=== PATIENT | male | born 1995 | race Caucasian/White ===

== ENCOUNTER 2017-05-02 11:26 | Emergency (ER) | payer OTHER ==
[~2017-05-02] VITALS: Ht 177.8 cm; Wt 68.5 kg
[2017-05-02] MEDS ORDERED: KETOROLAC 30 MG/ML VIAL (J1885) IV ONE (13:15)
[2017-05-02] MEDS ORDERED: ONDANSETRON 4MG/2ML VIAL (J2405) IV ONE (13:15)
[2017-05-02] MEDS ORDERED: GASTROGRAFIN SOLUTION 30ML (Q9963) PO ONE (13:30)
[2017-05-02 13:51] LABS: ALBUMIN 4.6 GM/DL (3.2-5.2); ALBUMIN/GLOBULIN RATIO 1.48 (1.00-1.93); ALKALINE PHOSPHATASE 64 U/L (45-117); ALT/SGPT 33 U/L (12-78); AMYLASE 45 U/L (25-115); ANION GAP 6 MEQ/L (8-16); AST/SGOT 26 U/L (15-37); BILIRUBIN,DIRECT 0.3 MG/DL (0.0-0.2); BILIRUBIN,TOTAL 1.3 MG/DL (0.2-1.0); BLOOD UREA NITROGEN 24 MG/DL (7-18); CALCIUM LEVEL 8.9 MG/DL (8.5-10.1); CARBON DIOXIDE LEVEL 29 MEQ/L (21-32); CHLORIDE LEVEL 105 MEQ/L (98-107); CREATININE FOR GFR 1.07 MG/DL (0.70-1.30); GLUCOSE, FASTING 95 MG/DL (70-105); POTASSIUM SERUM 3.9 MEQ/L (3.5-5.1); SODIUM LEVEL 140 MEQ/L (136-145); TOTAL PROTEIN 7.7 GM/DL (6.4-8.2)
[2017-05-02 13:58] LABS: BASO % 0.4 % (0.0-1.0); EOS % 0.5 % (0.0-3.0); LARGE UNSTAINED CELL # 0.1 K/mm3 (0.0-0.4); LARGE UNSTAINED CELL % 2.2 % (0.0-4.0); LYMPH # 1.8 K/mm3 (1.5-6.5); LYMPH % 26.2 % (24.0-44.0); MEAN CORPUSCULAR HEMOGLOBIN 29.9 pg (27.0-33.0); MEAN CORPUSCULAR HGB CONC 34.9 g/dl (32.0-36.5); MEAN CORPUSCULAR VOLUME 85.8 fl (80.0-96.0); MONO # 0.4 K/mm3 (0.0-0.8); MONO % 6.8 % (0.0-5.0); NEUTROPHILS % 63.8 % (36.0-66.0); PLATELET COUNT, AUTOMATED 229 k/mm3 (150-450); RED CELL DISTRIBUTION WIDTH 12.5 % (11.5-14.5); WHITE BLOOD COUNT 6.2 K/mm3 (4.0-10.0)
[2017-05-02] MEDS ORDERED: GASTROGRAFIN SOLUTION 30ML PO ONE (14:00)
[2017-05-02] MEDS ORDERED: ISOVUE-370 76% 100ML VIAL (Q9967) As Ordered ONE (14:44)
[2017-05-02 15:10] VITALS: BP 136/69
--- NOTE | 2017-05-02 15:11 | REP ---
CT abdomen pelvis with IV and oral contrast: There are no comparisons. The visualized lung miller are unremarkable. The hepatic parenchyma, gallbladder, pancreas and spleen are unremarkable. The adrenals, kidneys and abdominal aorta are unremarkable. There is no bowel distension or wall thickening. The mesentery is unremarkable. Pelvis: The appendix has a normal appearance. There is no ascites or adenopathy. The pelvic bowel loops are unremarkable. The bladder is unremarkable. Impression: Essentially negative CT of the abdomen and pelvis. Signed by Isaias Kimble MD 05/02/2017 03:03 P
[2017-05-02] MEDS ORDERED: ZOFR4TAB3 PO (15:14)
== END 2017-05-02 15:22 | disposition home or self-care (01) ==
LOC: M ED 11:55
DX: R10.84 Generalized abdominal pain (principal); R11.0 Nausea
CPT/HCPCS: 74177; 80048; 80076; 81001; 82150; 83690; 85025; 86140; 96374; 96375; 99283; J1885; J2405; Q9963; Q9967

== ENCOUNTER 2017-09-13 20:33 | Emergency (ER) | payer OTHER ==
[~2017-09-13] VITALS: Ht 177.8 cm; Wt 70.5 kg
[~2017-09-13 20:33] MED LIST: ZOFR4TAB3 PO
[2017-09-13] MEDS ORDERED: TRIA1CR TOP (23:12)
[2017-09-13] MEDS ORDERED: predniSONE 20 MG TAB PO ONE (23:15)
[2017-09-13] MEDS ORDERED: LORATADINE 10 MG TAB PO ONE (23:15)
[2017-09-13 23:17] VITALS: BP 112/68
== END 2017-09-13 23:18 | disposition home or self-care (01) ==
LOC: M ED 20:33
DX: L23.5 Allergic contact dermatitis due to other chemical products (principal)